=== PATIENT | female | born 1970 | race Caucasian/White ===

== ENCOUNTER 2017-02-08 14:07 | Emergency (ER) | payer SELFPAY ==
--- NOTE | 2017-02-08 17:35 | ED NURSING NOTES ---
Clinical Report - Nurses [facility] [address] [place] [address] 02/08/2017 14:08 [id number] TRI[facility] Triage time 14:10 Feb 08 2017. Acuity: LEVEL 3. Chief Complaint: ABDOMINAL PAIN, NAUSEA and VOMITING. Alert. LELE COMA SCORE: Lele Coma Scale: 15- eyes open spontaneously (4); best verbal response- oriented x 4 (5); best motor response- obeys commands (6). --14:31 Venkat Hardin R.N. 14:18 02/08/17. BP: 117/81. HR: 100. RR: 18. O2 saturation: 98% on room air. Temp: 98.5 F. Pain level now: 05/23. Additional comments: Abd pain. --14:31 Venkat Hardin R.N. Weight: 67.1 kg stated. Height/Length: 67 inches Per Patient. BMI: 23.2. --14:23 Venkat Hardin R.N. Medications Vitamin D Oral, weekly. --14:21 Venkat Hardin R.N. Levothyroxine Sodium Oral 137 mcg, daily. --14:21 Venkat Hardin R.N. Phenergan (Promethazine) Rectal (Suppository 25 mg) 1 suppository, prn. --14:22 Venkat Hardin R.N. Medication/allergy information source: the patient. --14:31 Venkat Hardin R.N. Allergies Codeine.(hives) FentaNYL. (shaky) Morphine and Related.(hives) NSAIDs. (stomach bleed) --14:21 Venkat Hardin R.N. History Arrived by private vehicle. Historian: patient. Accompanied by spouse. Primary physician (none). ( Lower Abdominal Pain associated with nausea.). Onset. (about 2 days ago). She has had nausea and abdominal pain. Last oral intake by patient was breakfast. 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 Symptoms did not improve after treatment. PAST MEDICAL HX: Immunizations: up-to-date. The patient has had a hysterectomy. SOCIAL HX: Light tobacco smoker (cigarette)- less than 1/2 a pack per day. No alcohol use or drug use. No recent travel. No infectious disease exposure. ABUSE ASSESSMENT: No report of abuse. FALL RISK ASSESSMENT: Fall risk assessment completed. No fall risk identified. NUTRITIONAL RISK ASSESSMENT: The nutritional risk assessment revealed no deficiencies. FUNCTIONAL ASSESSMENT: Functional assessment: no impairments noted. LEARNING NEEDS ASSESSMENT: The learning needs assessment revealed no barriers. SKIN INTEGRITY ASSESSMENT: Skin integrity risk assessment completed. No skin integrity risk identified. --14:31 Venkat Hardin R.N. PROBLEMS: Thyroid Disease. Osteoporosis. Abdominal Pain. Immunizations. Pain chronic intermitent abdonimal. Ovarian Torsion. Gallstone(s). Abdominal "nodule" possible adhesions. Ovarian Cyst. --14:22 Venkat Hardin R.N. ADDITIONAL SURGERIES: Appendectomy. Cholecystectomy. Dental Surgery. Hysterectomy. Laparotomies. Oophorectomy. Ovarian cyst removal. Tonsillectomy. Wrist. --14:22 Venkat Hardin R.N. Interventions ID and allergy band on patient. To treatment room. --14:31 Venkat Hardin R.N. PHYSICAL ASSESSMENT Ambulatory to room. GENERAL / NEURO / PSYCH: Alert. Oriented X 4. HEENT: Mucous membranes are pink. RESPIRATORY: Respirations not labored. CVS: Cardiac rhythm: (RRR). SKIN: Skin is warm and dry. --14:32 Venkat Hardin R.N. NURSING PROGRESS NOTES Patient gowned. Reassurance given. Patient identifiers checked. Call light placed in reach. Side rails up. Bed placed in lowest position. Brakes of bed on. Patient ready for evaluation- chart flagged and ED physician notified. --14:32 Venkat Hardin R.N. 14:56 02/08/2017 Site #1 started via IV in the right hand with an 24g angiocath, with aseptic technique and good blood return; three attempts. Blood drawn: rainbow set. Labeled in the presence of the patient and sent to the lab. Saline lock flushed with 10 mL saline (Done by Aylin FONSECA). --15:01 Bello Parr R.N. 15:01 02/08/2017 Started bag #1 1000 mL IV Fluids IV NS (Saline); at 1000 mL/hr over 1 hour(s) via site #1 via IV pump. Allergies verified and confirmed 5 rights. IV patency established. IV site checked: no pain, redness, or swelling. IV flushed thoroughly pre- and post-medication administration. --15:01 Bello Parr R.N. assisted pt to bathroom. --15:50 Corrine Agarwal R.N. pt ambulated back to room on her own. --15:53 Corrine Agarwal R.N. 15:39 02/08/17. BP: 104/70. HR: 94. RR: 18 (unlabored). O2 saturation: 98% on room air. --16:21 Corrine Agarwal R.N. attempted to redraw blood sample for lab. tube for CBC clotted. attempt unsuccessful. medical supply technician will attempt to draw from a fingerstick. --16:22 Corrine Agarwal R.N. 16:27 02/08/2017 IV Fluids IV NS via IV site #1 Rate Changed: bag #1 decreased to 125 mL/hr via IV pump. IV patency established. IV site checked: no pain, redness, or swelling. IV flushed thoroughly. --16:27 Corrine Agarwal R.N. 16:00 assumed pt care. --16:30 Corrine Agarwal R.N. 16:15 pt c/o pain to pelvis, requesting pain meds. --17:38 Corrine Agarwal R.N. 16:15 02/08/17. BP: 105/80. HR: 92. RR: 20 (unlabored). O2 saturation: 98% on room air. --17:38 Corrine Agarwal R.N. 17:15 02/08/17. BP: 106/82. HR: 83. RR: 20 (unlabored). O2 saturation: 96% on room air. Pain level now: 05/23. Additional comments: pt continues to c/o pain. . --17:39 Corrine Agarwal R.N. MD in to speak with pt regarding her lab results. --17:40 Corrine Agarwal R.N. 17:50 02/08/2017 IV Fluids IV NS Discontinued: bag #1 discontinued. Total amount infused: 700 ml mL. IV patency established. IV site checked: no pain, redness, or swelling. IV flushed thoroughly. --18:04 Corrine Agarwal R.N. DISPOSITION / DISCHARGE Departure time: 1752. Condition at departure: unchanged. No learning barriers present. Discharge instructions provided and reviewed with the patient. Patient verbalized understanding. Written instructions provided in Mozambican. The patient was discharged by the physician. She was discharged home and accompanied by utilization review nurse. She left the Emergency Department ambulatory and via private vehicle. Restorative Art Embalmer driving. Medication list reviewed and validated with the patient. --18:01 Corrine Agarwal R.N. 17:53 02/08/17. BP: deferred. HR: deferred. RR: deferred. O2 saturation: deferred. Temp: deferred. Pain level now deferred. --18:01 Corrine Agarwal R.N. 17:50 02/08/2017 Site #1 removed upon discharge. Bandage applied. --18:02 Corrine Agarwal R.N. Locked/Released at 02/08/2017 18:04 by Corrine Agarwal R.N.
--- NOTE | 2017-02-08 17:35 | ED NURSING NOTES ---
Clinical Report - Nurses [facility] [address] [place] [address] 02/08/2017 14:08 [id number] TRI[facility] Triage time 14:10 Feb 08 2017. Acuity: LEVEL 3. Chief Complaint: ABDOMINAL PAIN, NAUSEA and VOMITING. Alert. LELE COMA SCORE: Lele Coma Scale: 15- eyes open spontaneously (4); best verbal response- oriented x 4 (5); best motor response- obeys commands (6). --14:31 Venkat Hardin R.N. 14:18 02/08/17. BP: 117/81. HR: 100. RR: 18. O2 saturation: 98% on room air. Temp: 98.5 F. Pain level now: 05/23. Additional comments: Abd pain. --14:31 Venkat Hardin R.N. Weight: 67.1 kg stated. Height/Length: 67 inches Per Patient. BMI: 23.2. --14:23 Venkat Hardin R.N. Medications Vitamin D Oral, weekly. --14:21 Venkat Hardin R.N. Levothyroxine Sodium Oral 137 mcg, daily. --14:21 Venkat Hardin R.N. Phenergan (Promethazine) Rectal (Suppository 25 mg) 1 suppository, prn. --14:22 Venkat Hardin R.N. Medication/allergy information source: the patient. --14:31 Venkat Hardin R.N. Allergies Codeine.(hives) FentaNYL. (shaky) Morphine and Related.(hives) NSAIDs. (stomach bleed) --14:21 Venkat Hardin R.N. History Arrived by private vehicle. Historian: patient. Accompanied by spouse. Primary physician (none). ( Lower Abdominal Pain associated with nausea.). Onset. (about 2 days ago). She has had nausea and abdominal pain. Last oral intake by patient was breakfast. 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 Symptoms did not improve after treatment. PAST MEDICAL HX: Immunizations: up-to-date. The patient has had a hysterectomy. SOCIAL HX: Light tobacco smoker (cigarette)- less than 1/2 a pack per day. No alcohol use or drug use. No recent travel. No infectious disease exposure. ABUSE ASSESSMENT: No report of abuse. FALL RISK ASSESSMENT: Fall risk assessment completed. No fall risk identified. NUTRITIONAL RISK ASSESSMENT: The nutritional risk assessment revealed no deficiencies. FUNCTIONAL ASSESSMENT: Functional assessment: no impairments noted. LEARNING NEEDS ASSESSMENT: The learning needs assessment revealed no barriers. SKIN INTEGRITY ASSESSMENT: Skin integrity risk assessment completed. No skin integrity risk identified. --14:31 Venkat Hardin R.N. PROBLEMS: Thyroid Disease. Osteoporosis. Abdominal Pain. Immunizations. Pain chronic intermitent abdonimal. Ovarian Torsion. Gallstone(s). Abdominal "nodule" possible adhesions. Ovarian Cyst. --14:22 Venkat Hardin R.N. ADDITIONAL SURGERIES: Appendectomy. Cholecystectomy. Dental Surgery. Hysterectomy. Laparotomies. Oophorectomy. Ovarian cyst removal. Tonsillectomy. Wrist. --14:22 Venkat Hardin R.N. Interventions ID and allergy band on patient. To treatment room. --14:31 Venkat Hardin R.N. PHYSICAL ASSESSMENT Ambulatory to room. GENERAL / NEURO / PSYCH: Alert. Oriented X 4. HEENT: Mucous membranes are pink. RESPIRATORY: Respirations not labored. CVS: Cardiac rhythm: (RRR). SKIN: Skin is warm and dry. --14:32 Venkat Hardin R.N. NURSING PROGRESS NOTES Patient gowned. Reassurance given. Patient identifiers checked. Call light placed in reach. Side rails up. Bed placed in lowest position. Brakes of bed on. Patient ready for evaluation- chart flagged and ED physician notified. --14:32 Venkat Hardin R.N. 14:56 02/08/2017 Site #1 started via IV in the right hand with an 24g angiocath, with aseptic technique and good blood return; three attempts. Blood drawn: rainbow set. Labeled in the presence of the patient and sent to the lab. Saline lock flushed with 10 mL saline (Done by Aylin FONSECA). --15:01 Bello Parr R.N. 15:01 02/08/2017 Started bag #1 1000 mL IV Fluids IV NS (Saline); at 1000 mL/hr over 1 hour(s) via site #1 via IV pump. Allergies verified and confirmed 5 rights. IV patency established. IV site checked: no pain, redness, or swelling. IV flushed thoroughly pre- and post-medication administration. --15:01 Bello Parr R.N. assisted pt to bathroom. --15:50 Corrine Agarwal R.N. pt ambulated back to room on her own. --15:53 Corrine Agarwal R.N. 15:39 02/08/17. BP: 104/70. HR: 94. RR: 18 (unlabored). O2 saturation: 98% on room air. --16:21 Corrine Agarwal R.N. attempted to redraw blood sample for lab. tube for CBC clotted. attempt unsuccessful. computer systems technician will attempt to draw from a fingerstick. --16:22 Corrine Agarwal R.N. 16:27 02/08/2017 IV Fluids IV NS via IV site #1 Rate Changed: bag #1 decreased to 125 mL/hr via IV pump. IV patency established. IV site checked: no pain, redness, or swelling. IV flushed thoroughly. --16:27 Corrine Agarwal R.N. 16:00 assumed pt care. --16:30 Corrine Agarwal R.N. 16:15 pt c/o pain to pelvis, requesting pain meds. --17:38 Corrine Agarwal R.N. 16:15 02/08/17. BP: 105/80. HR: 92. RR: 20 (unlabored). O2 saturation: 98% on room air. --17:38 Corrine Agarwal R.N. 17:15 02/08/17. BP: 106/82. HR: 83. RR: 20 (unlabored). O2 saturation: 96% on room air. Pain level now: 05/23. Additional comments: pt continues to c/o pain. . --17:39 Corrine Agarwal R.N. MD in to speak with pt regarding her lab results. --17:40 Corrine Agarwal R.N. 17:50 02/08/2017 IV Fluids IV NS Discontinued: bag #1 discontinued. Total amount infused: 700 ml mL. IV patency established. IV site checked: no pain, redness, or swelling. IV flushed thoroughly. --18:04 Corrine Agarwal R.N. DISPOSITION / DISCHARGE Departure time: 1752. Condition at departure: unchanged. No learning barriers present. Discharge instructions provided and reviewed with the patient. Patient verbalized understanding. Written instructions provided in Ugandan. The patient was discharged by the physician. She was discharged home and accompanied by hair or beauty salon manager. She left the Emergency Department ambulatory and via private vehicle. Service Now Developer driving. Medication list reviewed and validated with the patient. --18:01 Corrine Agarwal R.N. 17:53 02/08/17. BP: deferred. HR: deferred. RR: deferred. O2 saturation: deferred. Temp: deferred. Pain level now deferred. --18:01 Corrine Agarwal R.N. 17:50 02/08/2017 Site #1 removed upon discharge. Bandage applied. --18:02 Corrine Agarwal R.N. Locked/Released at 02/08/2017 18:04 by Corrine Agarwal R.N.
--- NOTE | 2017-02-08 17:35 | ED CLINICAL REPORT ---
Clinical Report - Physicians/Mid Levels [facility] [address] [place] [address] 02/08/2017 14:08 Patient: OLGA CHEN Time Seen: 14:29. Arrived- By private vehicle. Historian- patient. HISTORY OF PRESENT ILLNESS Chief Complaint: ABDOMINAL PAIN. At its maximum, severity described as severe. When seen in the E.D., severity described as severe. This started about 2 days ago and is still present. It was gradual in onset and has been waxing/waning. It is described as "pain". No radiation. It is described as located in the lower abdomen. The patient has had nausea and loss of appetite. She has had vomiting. The vomiting has occurred numerous times. No blood-tinged emesis, coffee-grounds emesis or frankly bloody emesis. Similar symptoms previously: Many times. REVIEW OF SYSTEMS No chills, fever, sweats, calf pain or chest pain. No cough, difficulty breathing, pedal edema, palpitations or black stools. No bloody stools or urinary problems. She reports normal flatus. All systems otherwise negative, except as recorded above. PAST HISTORY Problems: Thyroid Disease. Osteoporosis. Abdominal Pain. Pain chronic intermitent abdonimal. Ovarian Torsion. Gallstone(s). Abdominal "nodule" possible adhesions. Ovarian Cyst. Additional Surgeries: Appendectomy. Cholecystectomy. Dental Surgery. Hysterectomy. Laparotomies. Oophorectomy. Ovarian cyst removal. Tonsillectomy. Wrist. Medications: Phenergan (Promethazine) Rectal (Suppository 25 mg) 1 suppository, prn. Levothyroxine Sodium Oral 137 mcg, daily. Vitamin D Oral, weekly. Allergies: Codeine.(hives) FentaNYL. (shaky) Morphine and Related.(hives) NSAIDs. (stomach bleed). SOCIAL HISTORY Current every day light tobacco smoker (cigarette)- less than 1/2 a pack per day. No alcohol use or drug use. FAMILY HISTORY Denies family medical history. ADDITIONAL NOTES The nursing notes have been reviewed. PHYSICAL EXAM Vital Signs: 02/08/2017 14:18 BP: 117/81. HR: 100. RR: 18. O2 saturation: 98%. Temp: 98.5 F. Pain level now: 05/23. Have been reviewed. Appearance: Alert. Eyes: Pupils equal, round and reactive to light. ENT: Pharynx normal. Neck: Normal inspection. Neck supple. CVS: Normal heart rate and rhythm. Heart sounds normal. Respiratory: No respiratory distress. Breath sounds normal. Abdomen: Soft. Mild tenderness diffusely. Bowel sounds normal. No organomegaly. No mass. Back: Normal inspection. No CVA tenderness. Skin: Skin warm and dry. Normal skin color. Normal skin turgor. Extremities: Extremities exhibit normal ROM. No calf tenderness. No lower extremity edema. LABS, X-RAYS, AND EKG Laboratory Tests: UA-Culture if indicated: (SHANNEN: 02/08/2017 14:15) ( [facility] 02/08/2017 14:51) Final results Test Result Flag Units (Reference) URINE COLOR YELLOW URINE APPEARANCE CLEAR URINE GLUCOSE NEGATIVE (NEGATIVE) URINE BILIRUBIN NEGATIVE (NEGATIVE) URINE KETONE NEGATIVE (NEGATIVE) URINE SPECIFIC GRAVITY 1.025 (1.010-1.030) URINE PH 6.0 (5.0-8.0) URINE PROTEIN NEGATIVE (NEGATIVE) URINE UROBILINOGEN 0.2 EU/dL (0.2-1.0) URINE NITRITE NEGATIVE (NEGATIVE) URINE BLOOD NEGATIVE (NEGATIVE) URINE LEUK ESTERASE NEGATIVE (NEGATIVE) URINE RBC NONE SEEN rbc/hpf (0-1) URINE WBC NONE SEEN wbc/hpf (0-1) URINE EPITHELIAL CELLS 1-3 EPI/hpf (0-5) URINE BACTERIA FEW (1+) (NONE SEEN) URINE COMMENT CULT NOT INDICATED URINE CULTURES ARE SET-UP BASED ON THE FOLLOWING CRITERIA:POSITIVE NITRITEPOSITIVE LEUKOCYTE ESTERASEGREATER THAN 10 WHITE BLOOD CELLSMODERATE (2+) OR GREATER BACTERIA CBC w Diff: (SHANNEN: 02/08/2017 14:45) ( [facility] 02/08/2017 17:31) Final results Test Result Flag Units (Reference) WHITE BLOOD COUNT 5.8 K/uL (4.5-11.5) This is a corrected result 02/08/17 1554:WBC previously reported as: 5.4 K/uL RED BLOOD COUNT 3.77 L M/uL (4.00-5.20) This is a corrected result 02/08/171553:RBC previously reported as: 4.00 M/uL HEMOGLOBIN 12.2 gm/dL (12.0-16.0) 02/08/171553:HGB previously reported as: 13.0 gm/dL HEMATOCRIT 35.6 L % (36.0-46.0) This is a corrected result 02/08/171553:HCT previously reported as: 38.2 % MEAN CELL VOLUME 94 fL (80-100) This is a corrected result 02/08/174:MCV previously reported as: 96 fL MEAN CORPUSCULAR HGB 32 pg (26-34) This is a corrected result 02/08/174:MCH previously reported as: 32 pg MEAN CORPUSCULAR HGB CONC 34 g/dL (31-37) This is a corrected result 02/08/171553:MCHC previously reported as: 34 g/dL RED CELL DISTRIBUTION WIDTH 14.5 % (11.6-14.8) This is a corrected result 02/08/171554:RDW previously reported as: 15.1 H % PLATELET COUNT 175 K/uL (150-400) This is a corrected result 02/08/171554:PLT previously reported as: 64 L K/uL NEUTROPHIL % 60.8 % (50-75) This is a corrected result 02/08/171554:NEUTROPHIL % previously reported as: 57.2 % LYMPH % 30.9 % (25-40) This is a corrected result 02/08/171554:LYMPH % previously reported as: 33.9 % MONO % 5.3 % (3-14) This is a corrected result 02/08/171554:MONO % previously reported as: 5.4 % EOSINOPHIL % 2.2 % (0-4) This is a corrected result 02/08/171554:EOS % previously reported as: 1.8 % BASOPHIL % 0.8 % (0-2) This is a corrected result 02/08/171554:BASO % previously reported as: 1.7 % Urine Drug Screen: (SHANNEN: 02/08/2017 14:15) ( MsgRcvd 02/08/2017 14:59) Final results Test Result Flag Units (Reference) AMPHETAMINE/METHAMPHETAMINE NEGATIVE (NEGATIVE) BARBITURATE NEGATIVE (NEGATIVE) BENZODIAZEPINE NEGATIVE (NEGATIVE) CANNABINOID NEGATIVE (NEGATIVE) COCAINE NEGATIVE (NEGATIVE) ECSTASY NEGATIVE (NEGATIVE) METHADONE NEGATIVE (NEGATIVE) OPIATE POSITIVE H (NEGATIVE) The urine drug screen is a qualitative screening test fordrug overdose and abuse. All screen results should beconsidered as presumptive.Drugs screened for are as follows:BenzodiazepinesCocaineAmphetamines/MetamphetaminesTHC (Tetrahydrocannabinol)OpiatesBarbituratesEcstasyMethadonePositive results are unconfirmed. For confirmation, notifythe lab for the specimen to be sent to the reference lab.All confirmations must be performed by a differentmethodology.The ingestion of natural herbal and plant productscontaining Ephedra/Ephedra metabolites can produce in urineone or more substances capable of cross reacting withamphetamine/methamphetamine immunoassays. These testsprovide a preliminary result only. A more specificalternative chemical method must be used to obtain aconfirmed analytical result. CMP: (SHANNEN: 02/08/2017 14:45) ( MsgRcvd 02/08/2017 15:36) Final results Test Result Flag Units (Reference) GLUCOSE 105 mg/dL (70-110) BUN 9 mg/dL (7-18) CREATININE 0.9 mg/dL (0.6-1.3) Estimated GFR >60 mL/min Estimated GFR- >60 mL/min Note: Persistent reduction over 3 months in eGFR<60 mL/min/1.73 m2 defines CKD. Patients with eGFR values>=60 mL/min/1.73 m2 may also have CKD if evidence ofpersistent proteinuria. Additional information may be foundat www.kidney.org. SODIUM 140 mmol/L (136-145) POTASSIUM 4.2 mmol/L (3.5-5.1) CHLORIDE 102 mmol/L (98-107) CARBON DIOXIDE 28 mmol/L (21-32) CALCIUM 9.1 mg/dL (8.5-10.1) TOTAL PROTEIN 8.1 g/dL (6.4-8.2) ALBUMIN 4.4 g/dL (3.3-5.0) BILIRUBIN, TOTAL 0.3 mg/dL (0.0-1.0) ALKALINE PHOSPHATASE 69 U/L (46-116) AST (SGOT) 82 H U/L (15-37) ALT (SGPT) 154 H U/L (12-78) LIPASE 166 U/L (73-393) AMYLASE 45 U/L (25-115) . PROGRESS AND PROCEDURES Course of Care: Patient is stable. Patient/family counseled. Old medical records reviewed. Disposition: Discharged. Condition: stable. CLINICAL IMPRESSION Chronic abdominal pain of unknown cause. INSTRUCTIONS Drink plenty of fluids. Warnings: Further evaluation is necessary. GENERAL WARNINGS: Return or contact your physician immediately if your condition worsens or changes unexpectedly, if not improving as expected, or if other problems arise. Your Current Medications: CONTINUE TAKING THE FOLLOWING MEDICATIONS: Levothyroxine Sodium Oral : 137 mcg daily. Phenergan (Promethazine) Rectal : Suppository 25 mg, 1 suppository prn. Vitamin D Oral : weekly. Understanding of the discharge instructions verbalized by patient. Follow-up with: [facility], , , [address], , [place], [address] Follow up tomorrow. Call for the next available appointment. (Electronically signed by Jason Dailey MD 02/15/2017 20:25)
--- NOTE | 2017-02-08 17:35 | ED ORDER SUMMARY ---
..... Patient: OLGA CHEN OrderSheet [facility] VisitID: [id number] [place] [address] 46y, F Registration Date/Time: 02/08/2017 ORDER SHEET Weight: 67.1 kg (stated) Allergies: Codeine, FentaNYL, Morphine and Related, NSAIDs GENERAL ORDERS: CBC w Diff Urgent (14:34 02/08/2017 Padma TALLEY) (Ack 14:54 LNations ER Tech1) (15:00 LWhalen R.N.) CMP Urgent (14:34 02/08/2017 Padma TALLEY) (Ack 14:54 LNations ER Tech1) (15:00 LWhalen R.N.) UA-Culture if indicated Urgent (14:34 02/08/2017 Padma TALLEY) (14:37 JRomanelli R.N.) Amylase Urgent (14:02/08/2017 Padma TALLEY) (Ack 14:54 LNations ER Tech1) (15:00 LWhalen R.N.) Lipase Urgent (14:34 02/08/2017 Padma TALLEY) (Ack 14:54 LNations ER Tech1) (15:00 LWhalen R.N.) Urine Drug Screen Urgent (14:34 02/08/2017 Padma TALLEY) (Ack 14:54 LNations ER Tech1) (15:00 LWhalen R.N.) MEDICATION ORDERS: IV FLUIDS: IV NS : initial bolus 500 mL (1000 mL/hr), then 125 mL/hr for 4h (NOW); Urgent (14:32 02/08/2017 Padma TALLEY) (15:01 LWhalen R.N.) ORDER SHEET NOTES: [Electronically signed by Corrine Agarwal R.N. (18:04 02/08/2017)] [Electronically signed by Jason Dailey MD (20:25 02/15/2017)] [Electronically locked/signed by Corrine Agarwal R.N. (18:04 02/08/2017)]
--- NOTE | 2017-02-08 17:35 | ED ORDER SUMMARY ---
..... Patient: OLGA CHEN OrderSheet [facility] VisitID: [id number] [place] [address] 46y, F Registration Date/Time: 02/08/2017 ORDER SHEET Weight: 67.1 kg (stated) Allergies: Codeine, FentaNYL, Morphine and Related, NSAIDs GENERAL ORDERS: CBC w Diff Urgent (14:34 02/08/2017 Padma TALLEY) (Ack 14:54 LNations ER Tech1) (15:00 LWhalen R.N.) CMP Urgent (14:34 02/08/2017 Padma TALLEY) (Ack 14:54 LNations ER Tech1) (15:00 LWhalen R.N.) UA-Culture if indicated Urgent (14:34 02/08/2017 Padma TALLEY) (14:37 JRomanelli R.N.) Amylase Urgent (14:02/08/2017 Padma TALLEY) (Ack 14:54 LNations ER Tech1) (15:00 LWhalen R.N.) Lipase Urgent (14:34 02/08/2017 Padma TALLEY) (Ack 14:54 LNations ER Tech1) (15:00 LWhalen R.N.) Urine Drug Screen Urgent (14:34 02/08/2017 Padma TALLEY) (Ack 14:54 LNations ER Tech1) (15:00 LWhalen R.N.) MEDICATION ORDERS: IV FLUIDS: IV NS : initial bolus 500 mL (1000 mL/hr), then 125 mL/hr for 4h (NOW); Urgent (14:32 02/08/2017 Padma TALLEY) (15:01 LWhalen R.N.) ORDER SHEET NOTES: [Electronically signed by Corrine Agarwal R.N. (18:04 02/08/2017)] [Electronically signed by Jason Dailey MD (20:25 02/15/2017)] [Electronically locked/signed by Corrine Agarwal R.N. (18:04 02/08/2017)]
--- NOTE | 2017-02-15 20:25 | ED MED RECONCILIATION SUMMARY ---
Patient: AGNESJERILYNOLGA BEASLEY Medication Reconciliation Report [facility] VisitID: [id number] [address] [place] [address] 46y, F Registration Date/Time: 02/08/2017 Weight: 67.1 kg Height/Length: 67 in. BMI: 23.2 ALLERGIES: Codeine, FentaNYL, Morphine and Related, NSAIDs The patient's Home Medications are listed below: CONTINUE TAKING THE FOLLOWING MEDICATIONS: Levothyroxine Sodium Oral 137 mcg, daily Phenergan (Promethazine) Rectal (25 mg) 1 suppository, prn Vitamin D Oral, weekly The source(s) of the original Home Medication information: patient The following Medications were given to the patient in the Emergency Department: IV NS IV Fluids bolus 0, then 1000 mL/hr, administered: 02/08/2017 3:01:00 PM The following Medications were prescribed to the patient: None.
--- NOTE | 2017-02-15 20:25 | ED MAR SUMMARY ---
..... Medication Administration Record [facility] [address] [place] [address] Patient: OLGA CHEN Visit ID: [id number] 46y, F Weight: 67.1 kg Height/Length: 67 in BMI: 23.2 ALLERGIES: Codeine, FentaNYL, Morphine and Related, NSAIDs Start 15:01 02/08/2017 Bello Parr RCjNCj, Stop 17:50 02/08/2017 Corrine Agarwal RRachana Medication Administered: IV NS (SALINE), Dose: IV Fluids over 1 hour(s), Rate: 1000 mL/hr, Dispensed: 1000 mL bag, Site: #1 right hand. Medication Ordered: IV NS : initial bolus 500 mL (1000 mL/hr), then 125 mL/hr for 4h (NOW); Urgent.
--- NOTE | 2017-02-15 20:25 | ED MAR SUMMARY ---
..... Medication Administration Record [facility] [address] [place] [address] Patient: OLGA CHEN Visit ID: [id number] 46y, F Weight: 67.1 kg Height/Length: 67 in BMI: 23.2 ALLERGIES: Codeine, FentaNYL, Morphine and Related, NSAIDs Start 15:01 02/08/2017 Bello Parr RCjNCj, Stop 17:50 02/08/2017 Corrine Agarwal RRachana Medication Administered: IV NS (SALINE), Dose: IV Fluids over 1 hour(s), Rate: 1000 mL/hr, Dispensed: 1000 mL bag, Site: #1 right hand. Medication Ordered: IV NS : initial bolus 500 mL (1000 mL/hr), then 125 mL/hr for 4h (NOW); Urgent.
--- NOTE | 2017-02-15 20:25 | ED DISCHARGE INSTRUCTIONS ---
Patient: OLGA CHEN General Instructions [facility] VisitID: [id number] [address] [place] [address] 46y, F Registration Date/Time: 02/08/2017 Chronic abdominal pain of unknown cause. INSTRUCTIONS Drink plenty of fluids. Warnings: Further evaluation is necessary. GENERAL WARNINGS: Return or contact your physician immediately if your condition worsens or changes unexpectedly, if not improving as expected, or if other problems arise. Your Current Medications: CONTINUE TAKING THE FOLLOWING MEDICATIONS: Levothyroxine Sodium Oral : 137 mcg daily. Phenergan (Promethazine) Rectal : Suppository 25 mg, 1 suppository prn. Vitamin D Oral : weekly. Understanding of the discharge instructions verbalized by patient. Follow-up with: [facility], , , [address], [place], [address] Follow up tomorrow. Call for the next available appointment. ADDITIONAL INFORMATION Abdominal Pain, Unknown Cause (Female) The exact cause of your abdominal (stomach) pain is not certain. This does not mean that this is something to worry about, or the right tests were not done. Everyone likes to know the exact cause of the problem, but sometimes with abdominal pain, there is no clear-cut cause, and this could be a good thing. The good news is that your symptoms can be treated, and you will feel better. Your condition does not seem serious now; however, sometimes the signs of a serious problem may take more time to appear. For this reason,it is important for you to watch for any new symptoms, problems,or worsening of your condition. Over the next few days, the abdominal pain may come and go, or be continuous. Other common symptoms can include nausea and vomiting. Sometimes it can be difficult to tell if you feel nauseous, you may just feel bad and not associate that feeling with nausea. Constipation, diarrhea, and a fever may go along with the pain. The pain may continue even if treated correctly over the following days. Depending on how things go, sometimes the cause can become clear and may require further or different treatment. Additional evaluations, medications, or tests may be needed. Home care Your health care provider may prescribe medications for pain, symptoms, or an infection. Follow the health care provider's instructions for taking these medications. General care Rest until your next exam. No strenuous activities. Try to find positions that ease discomfort. A small pillow placed on the abdomen may help relieve pain. Something warm on your abdomen (such as a heating pad) may help, but be careful not to burn yourself. Diet Do not force yourself to eat, especially if having cramps, vomiting, or diarrhea. Water is important so you do not get dehydrated. Soup may also be good. Sports drinks may also help, especially if they are not too acidic. Make sure you don't drink sugary drinks as this can make things worse. Take liquids in small amounts. Do not guzzle them. Caffeine sometimes makes the pain and cramping worse. Avoid dairy products if you have vomiting or diarrhea. Don't eat large amounts at a time. Wait a few minutes between bites. Eat a diet low in fiber (called a low-residue diet). Foods allowed include refined breads, white rice, fruit and vegetable juices without pulp, tender meats. These foods will pass more easily through the intestine. Avoid whole-grain foods, whole fruits and vegetables, meats, seeds and nuts, fried or fatty foods, dairy, alcohol and spicy foods until your symptoms go away. Follow-up care Follow up with your health care provider as instructed, or if your pain does not begin to improve in the next 24 hours. When to seek medical care Seek prompt medical care if any of the following occur: Pain gets worse or moves to the right lower abdomen New or worsening vomiting or diarrhea Swelling of the abdomen Unable to pass stool for more than three days Fever of 100.4F (38C) or higher, or as directed by your healthcare provider. Blood in vomit or bowel movements (dark red or black color) Jaundice (yellow color of eyes and skin) Weakness, dizziness Chest, arm, back, neck or jaw pain Unexpected vaginal bleeding or missed period Call 911 Call emergency services if any of the following occur: Trouble breathing Confusion Fainting or loss of consciousness Rapid heart rate Seizure You have been given the following additional information: Abdominal Pain, Unknown Cause, (Female) (Electronically signed by Jason Dailey MD 02/15/2017 20:25)
--- NOTE | 2017-02-15 20:25 | ED MED RECONCILIATION SUMMARY ---
Patient: AGNESJERILYNOLGA BEASLEY Medication Reconciliation Report [facility] VisitID: [id number] [address] [place] [address] 46y, F Registration Date/Time: 02/08/2017 Weight: 67.1 kg Height/Length: 67 in. BMI: 23.2 ALLERGIES: Codeine, FentaNYL, Morphine and Related, NSAIDs The patient's Home Medications are listed below: CONTINUE TAKING THE FOLLOWING MEDICATIONS: Levothyroxine Sodium Oral 137 mcg, daily Phenergan (Promethazine) Rectal (25 mg) 1 suppository, prn Vitamin D Oral, weekly The source(s) of the original Home Medication information: patient The following Medications were given to the patient in the Emergency Department: IV NS IV Fluids bolus 0, then 1000 mL/hr, administered: 02/08/2017 3:01:00 PM The following Medications were prescribed to the patient: None.
--- NOTE | 2017-02-15 20:25 | ED DISCHARGE INSTRUCTIONS ---
Patient: OLGA CHEN General Instructions [facility] VisitID: [id number] [address] [place] [address] 46y, F Registration Date/Time: 02/08/2017 Chronic abdominal pain of unknown cause. INSTRUCTIONS Drink plenty of fluids. Warnings: Further evaluation is necessary. GENERAL WARNINGS: Return or contact your physician immediately if your condition worsens or changes unexpectedly, if not improving as expected, or if other problems arise. Your Current Medications: CONTINUE TAKING THE FOLLOWING MEDICATIONS: Levothyroxine Sodium Oral : 137 mcg daily. Phenergan (Promethazine) Rectal : Suppository 25 mg, 1 suppository prn. Vitamin D Oral : weekly. Understanding of the discharge instructions verbalized by patient. Follow-up with: [facility], , , [address], [place], [address] Follow up tomorrow. Call for the next available appointment. ADDITIONAL INFORMATION Abdominal Pain, Unknown Cause (Female) The exact cause of your abdominal (stomach) pain is not certain. This does not mean that this is something to worry about, or the right tests were not done. Everyone likes to know the exact cause of the problem, but sometimes with abdominal pain, there is no clear-cut cause, and this could be a good thing. The good news is that your symptoms can be treated, and you will feel better. Your condition does not seem serious now; however, sometimes the signs of a serious problem may take more time to appear. For this reason,it is important for you to watch for any new symptoms, problems,or worsening of your condition. Over the next few days, the abdominal pain may come and go, or be continuous. Other common symptoms can include nausea and vomiting. Sometimes it can be difficult to tell if you feel nauseous, you may just feel bad and not associate that feeling with nausea. Constipation, diarrhea, and a fever may go along with the pain. The pain may continue even if treated correctly over the following days. Depending on how things go, sometimes the cause can become clear and may require further or different treatment. Additional evaluations, medications, or tests may be needed. Home care Your health care provider may prescribe medications for pain, symptoms, or an infection. Follow the health care provider's instructions for taking these medications. General care Rest until your next exam. No strenuous activities. Try to find positions that ease discomfort. A small pillow placed on the abdomen may help relieve pain. Something warm on your abdomen (such as a heating pad) may help, but be careful not to burn yourself. Diet Do not force yourself to eat, especially if having cramps, vomiting, or diarrhea. Water is important so you do not get dehydrated. Soup may also be good. Sports drinks may also help, especially if they are not too acidic. Make sure you don't drink sugary drinks as this can make things worse. Take liquids in small amounts. Do not guzzle them. Caffeine sometimes makes the pain and cramping worse. Avoid dairy products if you have vomiting or diarrhea. Don't eat large amounts at a time. Wait a few minutes between bites. Eat a diet low in fiber (called a low-residue diet). Foods allowed include refined breads, white rice, fruit and vegetable juices without pulp, tender meats. These foods will pass more easily through the intestine. Avoid whole-grain foods, whole fruits and vegetables, meats, seeds and nuts, fried or fatty foods, dairy, alcohol and spicy foods until your symptoms go away. Follow-up care Follow up with your health care provider as instructed, or if your pain does not begin to improve in the next 24 hours. When to seek medical care Seek prompt medical care if any of the following occur: Pain gets worse or moves to the right lower abdomen New or worsening vomiting or diarrhea Swelling of the abdomen Unable to pass stool for more than three days Fever of 100.4F (38C) or higher, or as directed by your healthcare provider. Blood in vomit or bowel movements (dark red or black color) Jaundice (yellow color of eyes and skin) Weakness, dizziness Chest, arm, back, neck or jaw pain Unexpected vaginal bleeding or missed period Call 911 Call emergency services if any of the following occur: Trouble breathing Confusion Fainting or loss of consciousness Rapid heart rate Seizure You have been given the following additional information: Abdominal Pain, Unknown Cause, (Female) (Electronically signed by Jason Dailey MD 02/15/2017 20:25)
== END 2017-02-08 17:53 | disposition home or self-care (01) ==
LOC: ED SRH 14:07
DX: R10.30 Lower abdominal pain, unspecified (principal); F17.210 Nicotine dependence, cigarettes, uncomplicated; Z79.899 Other long term (current) drug therapy; Z88.8 Allergy status to other drugs, medicaments and biological substances; Z88.5 Allergy status to narcotic agent
CPT/HCPCS: 90004; 90100; 92235; 92530; 92760; 92761; 92762; 92763; 92764; 92765; 92766; 92767; 95059